=== PATIENT | male | born 1995 | race Caucasian/White ===

== ENCOUNTER 2019-10-08 18:24 | Inpatient (IN) | payer OTHER ==
[~2019-10-08] VITALS: Ht 188 cm; Wt 93.4 kg
[2019-10-08 19:02] LABS: HEMATOCRIT 49.4 % (42.0-52.0); HEMOGLOBIN 16.7 g/dl (13.5-17.5); MEAN CORPUSCULAR HEMOGLOBIN 31.1 pg (27.0-33.0); MEAN CORPUSCULAR HGB CONC 33.8 g/dl (32.0-36.5); PLATELET COUNT, AUTOMATED 197 10^3/uL (150-450); RED BLOOD COUNT 5.37 10^6/uL (4.30-6.10); WHITE BLOOD COUNT 6.8 10^3/uL (4.0-10.0)
[2019-10-08 19:36] LABS: ACETAMINOPHEN LEVEL < 2.0 UG/ML (10.0-30.0); ALBUMIN 4.4 GM/DL (3.2-5.2); ALT/SGPT 21 U/L (12-78); BILIRUBIN,DIRECT 0.2 MG/DL (0.0-0.2); BILIRUBIN,TOTAL 0.8 MG/DL (0.2-1.0); BLOOD UREA NITROGEN 14 MG/DL (7-18); CALCIUM LEVEL 9.6 MG/DL (8.5-10.1); CARBON DIOXIDE LEVEL 28 MEQ/L (21-32); CHLORIDE LEVEL 105 MEQ/L (98-107); CREATININE FOR GFR 1.23 MG/DL (0.70-1.30); ETHYL ALCOHOL (ETHANOL) < 0.003 % (0.000-0.010); GLOMERULAR FILTRATION RATE > 60.0 (>60); GLUCOSE, FASTING 96 MG/DL (70-100); SALICYLATE LEVEL < 1.7 MG/DL (5.0-30.0); SODIUM LEVEL 140 MEQ/L (136-145); TOTAL PROTEIN 7.6 GM/DL (6.4-8.2)
[2019-10-08] MEDS ORDERED: ISOVUE-370 76% 100ML VIAL (Q9967) As Ordered ONE (19:48)
--- NOTE | 2019-10-08 20:52 | REPVR ---
PROCEDURE INFORMATION: Exam: CT Neck With Contrast Exam date and time: 10/08/2019 7:51 PM Age: 23 years old Clinical history: Injury or trauma; Injury history: Strangulation injury; Initial encounter; Constriction/strangulation TECHNIQUE: Imaging protocol: Computed tomography images of the neck with intravenous contrast. Radiation optimization: All CT scans at this facility use at least one of these dose optimization techniques: automated exposure control; mA and/or kV adjustment per patient size (includes targeted exams where dose is matched to clinical indication); or iterative reconstruction. Contrast material: ISOVUE 370; Contrast volume: 75 ml; Contrast route: IV; COMPARISON: No relevant prior studies available. FINDINGS: Nasopharynx: Unremarkable. Oropharynx: Unremarkable. No significant tonsillar enlargement. Hypopharynx: Unremarkable Larynx: Unremarkable. Normal epiglottis. Retropharyngeal space: Unremarkable. Submandibular/Parotid glands: Normal. Glands are normal in size. Thyroid: Normal. No enlarged or calcified nodules. Lymph nodes: Unremarkable. No lymphadenopathy. Trachea: Visualized trachea is unremarkable. Lungs: Unremarkable as visualized. Bones/joints: Unremarkable. No acute fracture. Soft tissues: Unremarkable. No significant soft tissue swelling. IMPRESSION: No acute findings. Electronically signed by: Stephanie Perez On 10/08/2019 20:51:52 PM
[2019-10-08 21:10] LABS: AMPHETAMINES LEVEL URINE NEGATIVE (NEGATIVE); BARBITURATES URINE NEGATIVE (NEGATIVE); BENZODIAZEPINES URINE NEGATIVE (NEGATIVE); CANNABINOIDS URINE NEGATIVE (NEGATIVE); COCAINE METABOLITE URINE NEGATIVE (NEGATIVE); METHADONE URINE NEGATIVE (NEGATIVE); OPIATES URINE NEGATIVE (NEGATIVE); PHENCYCLIDINE URINE NEGATIVE (NEGATIVE)
[2019-10-08] MEDS ORDERED: MOM 30ML SUSPENSION UDC PO PRN (21:45)
[2019-10-08] MEDS ORDERED: ACETAMINOPHEN TAB 650MG DOSE (2X325MG) PO PRN (21:45)
[2019-10-08] MEDS ORDERED: traZODone 50 MG TAB PO PRN (21:45)
[2019-10-08] MEDS ORDERED: MAALOX 30 ML SUSP *UDC PO PRN (21:45)
[2019-10-08 23:26] VITALS: BP 114/77
[2019-10-09 06:25] VITALS: BP 134/71
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
[2019-10-09 15:48] VITALS: BP 136/78
[2019-10-10 06:41] VITALS: BP 136/67
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
--- NOTE | 2019-10-10 10:53 | HPEPDOC ---
General Date of Admission Oct 08, 2019 at 21:39 Date of Service: Oct 10, 2019 Chief Complaint The patient is a 23-year-old male admitted with a reason for visit of Unspecified Depressive Disorder. 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 Today he complains of some pain around his neck and some difficulty in swallowing but he is able to eat regular food. The pain was about 1/10 in intensity and dull aching and says he does not need any medicines for the neck pain. Home Medications No Active Prescriptions or Reported Meds Allergies Coded Allergies: No Known Allergies (Unverified , 10/08/19) Past Medical History Medical History None Surgical History none Family History Significant Family History: Other (strokes in maternal grandfather) Social History * Smoker: Denies Alcohol: heavy (on weekends. ) Drugs: denies A-FIB/CHADSVASC A-FIB History Current/History of A-Fib/PAF?: No Review of Systems Constitutional: Denies: Chills, Fever, Night Sweats Eyes: Denies: Pain, Vision change ENT: Reports: Sore Throat, Other Symptoms (pain in neck) Skin: Reports: Bruising (ligature marisol in neck) Pulmonary: Denies: Dyspnea, Cough Cardiovascular: Denies: Chest Pain, Palpitations, Orthopnea, Paroxysmal Noc. Dyspnea, Lt Headedness Gastrointestinal: Denies: Nausea, Vomiting, Abdominal Pain, Diarrhea Genitourinary: Denies: Dysuria, Frequency, Incontinence, Retention Musculoskeletal: Reports: Neck Pain Neurological: Denies: Weakness, Numbness, Change in speech, Confusion Physical Examination General Exam: Positive: Alert, Cooperative, No Acute Distress Eye Exam: Positive: PERRLA, Conjunctiva & lids normal, EOMI; Negative: Sclera icteric ENT Exam: Positive: Atraumatic, Mucous membr. moist/pink, Pharynx Normal, Other ENT (ligature marisol with minor bruising) Neck Exam: Positive: Supple; Negative: JVD, thyromegaly Chest Exam: Positive: Clear to auscultation, Normal air movement Heart Exam: Positive: Rate Normal, Regular Rhythm, Normal S1, Normal S2; Negative: Murmurs, Rubs Abdomen Exam: Positive: Normal bowel sounds, Soft; Negative: Tenderness, Hepatospenomegaly Extremity Exam: Positive: Normal pulses; Negative: Clubbing, Cyanosis, Edema Neuro Exam: Positive: Normal Gait, Normal Speech, Cranial Nerves 3-12 NL, Reflexes 2+ Vital Signs Vital Signs Date Time Temp Pulse Resp B/P (MAP) Pulse Ox O2 Delivery O2 Flow Rate FiO2 10/09/19 08:15 Room Air 10/09/19 06:25 98.5 82 14 134/71 (92) 10/08/19 23:26 96 Laboratory Data Labs 24H Laboratory Tests 2 10/08/19 18:51: Nucleated Red Blood Cells % (auto) 0.0, Anion Gap 7L, Glomerular Filtration Rate > 60.0, Calcium Level 9.6, Total Bilirubin 0.8, Direct Bilirubin 0.2, Aspartate Amino Transf (AST/SGOT) 11, Alanine Aminotransferase (ALT/SGPT) 21, Alkaline Phosphatase 110, Total Protein 7.6, Albumin 4.4, Albumin/Globulin Ratio 1.38, Thyroid Stimulating Hormone (TSH) 1.150, Salicylates Level < 1.7L, Acetaminophen Level < 2.0L, Ethyl Alcohol Level < 0.003 10/08/19 20:38: Urine Opiates Screen NEGATIVE, Urine Methadone Screen NEGATIVE, Urine Barbiturates Screen NEGATIVE, Urine Phencyclidine Screen NEGATIVE, Urine Amphetamines Screen NEGATIVE, Urine Benzodiazepines Screen NEGATIVE, Urine Cocaine Metabolite Screen NEGATIVE, Urine Cannabinoids Screen NEGATIVE CBC/BMP Laboratory Tests 10/08/19 18:51 Assessment/Plan 23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 Today he complains of some pain around his neck and some difficulty in swallowing but he is able to eat regular food. Psychiatrics issues As per psychiatry Neck pain can use tylenol prn if needed. No acute medical problems at present. Please reconsult if needed. Plan / VTE VTE Prophylaxis Ordered?: No (freely ambulatory) KARIS DE LA ROSA MD Oct 09, 2019 11:02
[2019-10-10 15:44] VITALS: BP 144/79
[2019-10-11 06:52] VITALS: BP 110/61
--- NOTE | 2019-10-11 10:20 | MHIPNPDOC ---
[facility] Progress Note Progress Note Inpatient Progress Note Jef Hoffmann MRN: N/A Date of : N/A Date of Service: 10/11/2019 History of Present Illness 23-year-old man with a history of severe depression presents after attempting to hang himself in a severe suicide attempt. Interval History The patient is met with today. He reports he is doing well, his mood is improved and that he has had no major problems. The staff reports no difficulties and he has been generally amenable to all interventions. He denies any specific problems, has been attending groups well and has had no behavioral problems. He is somewhat ambivalent about meeting, but does not appear to be unfriendly. Review Of Systems Reports only some mild difficulty swallowing, but no shortness of breath, chest pain, cough, GI upset or urinary difficulties. Psychotherapy None on this visit. Vital Signs Reviewed. Mental Status Examination General: Well dressed with good hygiene Speech: Spontaneous and fluid Thought processes: Linear and logical MSK: Smooth and coordinated gait, no signs of tremors or involuntary orofacial movements Thought content: Future orientated Abstract reasoning, and computation: Intact Description of associations: Intact Description of abnormal or psychotic thoughts: Denies any suicidal or homicidal ideation. Denies any auditory or visual hallucinations. Does not appear to be responding to internal stimuli. Does not appear to be endorsing any bizarre or paranoid ideation. Judgment: fair Insight: fair Orientation: Alert and orientated 3 Cognition: Grossly normal Recent and remote memory: Intact Attention span and concentration: Intact Fund of knowledge: Adequate Mood: "okay" Affect: Euthymic with a full range Diagnoses Adjustment disorder with disruption of mood and conduct/depression and anxiety. Assessment and Plan Adjustment disorder: Continue therapy. Discussed with patient the previous plan with Dr. Cox. Disposition Will need continued observation in order to determine a safe discharge. Time Spent 15 minutes. Friday Vital Signs Vital Signs Date Time Temp Pulse Resp B/P (MAP) Pulse Ox O2 Delivery O2 Flow Rate FiO2 10/11/19 06:52 98.5 64 12 110/61 (77) Room Air 10/08/19 23:26 96 Current Medications Current Medications Medications (Trade) Dose Ordered Sig/Lizett Route PRN Reason Start Time Stop Time Status Last Admin Dose Admin Acetaminophen (Tylenol Tab) 650 mg Q6HP PRN PO HEADACHE or DISCOMFORT 10/08/19 21:45 Al Hydrox/Mg Hydrox/Simethicone (Mylanta) 30 ml Q4HP PRN PO HEARTBURN/INDIGESTION 10/08/19 21:45 Home Med (Med Rec Complete!) ASDIRECTED XX 10/08/19 22:30 10/08/19 22:29 DC Magnesium Hydroxide (Milk Of Magnesia) 30 ml DAILYPRN PRN PO CONSTIPATION 10/08/19 21:45 Trazodone HCl (Desyrel) 50 mg QHSP PRN PO INSOMNIA 10/08/19 21:45 Allergies Coded Allergies: No Known Allergies (Unverified , 10/08/19) ANA LILIA COY DO Oct 11, 2019 10:20
[2019-10-11 16:20] VITALS: BP 138/72
[2019-10-12 06:37] VITALS: BP 117/64
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
[2019-10-12 16:31] VITALS: BP 138/65
[2019-10-13 06:45] VITALS: BP 128/76
[2019-10-13] MEDS ORDERED: TRAZ-252 PO (08:37)
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
== END 2019-10-13 10:30 | disposition home or self-care (01) | DRG 882 ==
LOC: M ED 18:24 → M ED INP 21:39 → M PSY 23:14
PROVIDERS: ADMIT Psychiatry & Neurology Psychiatry; ATTEND Psychiatry & Neurology Psychiatry
DX: F43.23 Adjustment disorder with mixed anxiety and depressed mood (principal); R45.851 Suicidal ideations; Z91.5 Personal history of self-harm; Z81.8 Family history of other mental and behavioral disorders; M54.2 Cervicalgia